=== PATIENT | female | born 1955 | race Caucasian/White ===

== ENCOUNTER 2017-02-28 15:26 | Emergency (ER) | payer OTHER ==
[~2017-02-28] VITALS: Ht 160 cm; Wt 57.7 kg
[2017-02-28 15:32] VITALS: TEMP 36.9; Ht 160 cm; Wt 57.7 kg
--- NOTE | 2017-02-28 16:12 | DIAGNOSTIC IMAGING REPORT ---
RIGHT TIBIA/FIBULA 2 VIEWS ROUTINE CLINICAL HISTORY: Right lower leg pain. Evaluate for fracture. COMPARISON: None FINDINGS: No fracture or osseous lesion is identified within the right tibia or fibula. There may be mild soft tissue swelling anterior to the proximal to mid shaft of the right tibia. There is no soft tissue gas. Alignment of the right knee and ankle is anatomic and the talar dome is intact. IMPRESSION: No osseous abnormality of the right tibia or fibula. Electronically signed by: Syed Vines M.D. 02/28/2017 4:11 PM Dictated Date/Time: 02/28/2017 4:10 PM
[2017-02-28] MEDS ORDERED: NAPR1TAB9 PO (16:18)
[2017-02-28] MEDS ORDERED: HYZ/10015 PO (16:18)
[2017-02-28] MEDS ORDERED: PROB1TAB16 PO (16:18)
[2017-02-28] MEDS ORDERED: CLR10 PO (16:18)
[2017-02-28 17:36] LABS: BASO % 0.3 %; BASO ABS # 0.02 K/uL (0-0.2); COMPLETE YES; EOS % 0.7 %; HEMATOCRIT 41.1 % (37-47); IG% 0.3 %; LYMPH % 13.6 %; MEAN CELL VOLUME 91.9 fL (80-100); MEAN CORPUSCULAR HEMOGLOBIN 30.9 pg (25-34); MEAN CORPUSCULAR HGB CONC 33.6 g/dl (32-36); MEAN PLATELET VOLUME 9.5 fL (7.4-10.4); MONO % 4.4 %; NEUT % 80.7 %; PLATELET COUNT 222 K/uL (130-400); RED BLOOD COUNT 4.47 M/uL (4.2-5.4); WHITE BLOOD COUNT 7.33 K/uL (4.8-10.8)
[2017-02-28 17:48] LABS: PROTHROMBIN TIME (PATIENT) 10.4 SECONDS (9.0-12.0)
[2017-02-28 17:52] LABS: BUN/CREATININE RATIO 24.6 (10-20); CALCIUM 9.3 mg/dl (8.5-10.1); CREATININE 0.61 mg/dl (0.60-1.20); POTASSIUM 4.2 mmol/L (3.5-5.1)
--- NOTE | 2017-02-28 17:52 | DIAGNOSTIC IMAGING REPORT ---
RIGHT LOWER EXTREMITY VENOUS DOPPLER CLINICAL HISTORY: Right calf pain and swelling. COMPARISON STUDY: No previous studies for comparison. TECHNIQUE: Sonography of the deep venous system of the right lower extremity was performed. Compression and augmentation were evaluated. FINDINGS: The right common femoral, superficial femoral and popliteal veins were compressible. Augmentation was normal. Flow was shown within the deep calf vessels. IMPRESSION: No evidence of deep venous thrombus within the right lower extremity. Electronically signed by: Syed Vines M.D. 02/28/2017 5:50 PM Dictated Date/Time: 02/28/2017 5:50 PM
[2017-02-28 18:21] VITALS: BP 168/99; PULSE 78; O2SAT 98
--- NOTE | 2017-02-28 18:30 | EMERGENCY ROOM VISIT NOTE ---
History Report prepared by Stephane: Zonia Beasley Under the Supervision of: Dr. Jay Gonsalves M.D. First contact with patient: 15:35 Chief Complaint: LEG PAIN,LEG INJURY Stated Complaint: L CALF PAIN, SWELLING AND TENDERNESS History of Present Illness The patient is a 62 year old female who presents to the Emergency Room with complaints of constant right calf throbbing beginning a few hours ago. The patient states that she is visiting [place] from [place] and drove 2.5 hours yesterday to get here. She reports that today she started having some left calf pain and swelling that she has never had before. She notes that she is having some slight "numbness" in the right foot, but is not sure if she is just imagining it. The patient states that she tripped while she was walking her dogs the other day and has an abrasion on the right knee. She notes that she tried to elevate her leg and put heat on it without any relief of her pain. The patient describes her pain as throbbing and notes that she does not think that it is muscular. She denies any chest pain, shortness of breath, fever, vomiting, abdominal pain, and diarrhea. She reports a history of hypertension. Source of History: patient Onset: a few hours ago Position: other (right calf) Quality: other (throbbing) Timing: constant Modifying Factors (Relieving): other (none) Associated Symptoms: + numbness, No fevers, No chest pain, No SOB, No vomiting, No abdominal pain, No diarrhea Note: Pt complains of left calf swelling. Review of Systems See HPI for pertinent positives & negatives. A total of 10 systems reviewed and were otherwise negative. Past Medical & Surgical Medical Problems: (1) HTN (hypertension) Family History No pertinent family history stated. Social History Smoking Status: Never Smoker Marital Status: single Occupation Status: unemployed Current/Historical Medications Scheduled Hctz/Losartan (Hyzaar 25MG/100MG), 1 TAB PO DAILY Probiotic Product (Probiotic), 1 TAB PO DAILY Scheduled PRN Loratadine (Claritin), 10 MG PO DAILY PRN for Allergy Symptoms Naproxen (Aleve), 220 MG PO UD PRN for Pain Allergies Coded Allergies: No Known Allergies (Unverified , 02/28/17) Physical Exam Vital Signs Date Time Temp Pulse Resp B/P (MAP) Pulse Ox O2 Delivery O2 Flow Rate FiO2 02/28/17 18:21 78 18 168/99 98 02/28/17 17:21 77 18 170/95 98 Room Air 02/28/17 15:32 36.9 100 16 160/97 97 Room Air Physical Exam Constitutional: Vital signs reviewed. Eyes: Pupils are equal round reactive to light. Conjunctiva are noninjected. ENT: Pharynx is clear without erythema or exudate. Mucous membranes are moist. Neck supple without meningeal signs. Respiratory: Clear to auscultation bilaterally. Breath sounds are equal bilaterally. Cardiovascular: Regular rate and rhythm. No rubs or gallops. GI: Soft, nondistended and nontender. Bowel sounds are present. Musculoskeletal: No bony tenderness to the right knee or tib fib, abrasion to the inferolateral aspect of the right knee, no obvious swelling, tenderness, or erythema to the calf. Integumentary: No cyanosis. Neurological: The patient is awake and alert. No focal deficits. Psychiatric: Normal affect. Medical Decision & Procedures ER Provider Diagnostic Interpretation: Radiology results as stated below per my review and the radiologist's interpretation: RIGHT TIBIA/FIBULA 2 VIEWS ROUTINE FINDINGS: No fracture or osseous lesion is identified within the right tibia or fibula. There may be mild soft tissue swelling anterior to the proximal to mid shaft of the right tibia. There is no soft tissue gas. Alignment of the right knee and ankle is anatomic and the talar dome is intact. IMPRESSION: No osseous abnormality of the right tibia or fibula. Electronically signed by: Syed Vines M.D. 02/28/2017 4:11 PM Dictated Date/Time: 02/28/2017 4:10 PM RIGHT LOWER EXTREMITY VENOUS DOPPLER FINDINGS: The right common femoral, superficial femoral and popliteal veins were compressible. Augmentation was normal. Flow was shown within the deep calf vessels. IMPRESSION: No evidence of deep venous thrombus within the right lower extremity. Electronically signed by: Syed Vines M.D. 02/28/2017 5:50 PM Dictated Date/Time: 02/28/2017 5:50 PM Laboratory Results 02/28/17 17:26 Red Blood Count 4.47, Mean Corpuscular Volume 91.9, Mean Corpuscular Hemoglobin 30.9, Mean Corpuscular Hemoglobin Concent 33.6, Mean Platelet Volume 9.5, Neutrophils (%) (Auto) 80.7, Lymphocytes (%) (Auto) 13.6, Monocytes (%) (Auto) 4.4, Eosinophils (%) (Auto) 0.7, Basophils (%) (Auto) 0.3, Neutrophils # (Auto) 5.92, Lymphocytes # (Auto) 1.00, Monocytes # (Auto) 0.32, Eosinophils # (Auto) 0.05, Basophils # (Auto) 0.02 02/28/17 17:26 Test 02/28/17 17:26 White Blood Count 7.33 K/uL (4.8-10.8) Red Blood Count 4.47 M/uL (4.2-5.4) Hemoglobin 13.8 g/dL (12.0-16.0) Hematocrit 41.1 % (37-47) Mean Corpuscular Volume 91.9 fL (80-100) Mean Corpuscular Hemoglobin 30.9 pg (25-34) Mean Corpuscular Hemoglobin Concent 33.6 g/dl (32-36) Platelet Count 222 K/uL (130-400) Mean Platelet Volume 9.5 fL (7.4-10.4) Neutrophils (%) (Auto) 80.7 % Lymphocytes (%) (Auto) 13.6 % Monocytes (%) (Auto) 4.4 % Eosinophils (%) (Auto) 0.7 % Basophils (%) (Auto) 0.3 % Neutrophils # (Auto) 5.92 K/uL (1.4-6.5) Lymphocytes # (Auto) 1.00 K/uL (1.2-3.4) Monocytes # (Auto) 0.32 K/uL (0.11-0.59) Eosinophils # (Auto) 0.05 K/uL (0-0.5) Basophils # (Auto) 0.02 K/uL (0-0.2) RDW Standard Deviation 44.5 fL (36.4-46.3) RDW Coefficient of Variation 13.3 % (11.5-14.5) Immature Granulocyte % (Auto) 0.3 % Immature Granulocyte # (Auto) 0.02 K/uL (0.00-0.02) Prothrombin Time 10.4 SECONDS (9.0-12.0) Prothromb Time International Ratio 1.0 (0.9-1.1) Activated Partial Thromboplast Time 24.9 SECONDS (21.0-31.0) Partial Thromboplastin Ratio 1.0 Anion Gap 8.0 mmol/L (3-11) Est Creatinine Clear Calc Drug Dose 79.1 ml/min Estimated GFR () 112.6 Estimated GFR (Non- 97.2 BUN/Creatinine Ratio 24.6 (10-20) Calcium Level 9.3 mg/dl (8.5-10.1) Laboratory results as reviewed by me. ED Course 1535: The patient was evaluated in room B5. A complete history and physical exam was performed. 1655: I spoke to the patient. She is not sure if she wants to wait for the ultrasound so she may leave and come back. 173: The patient is headed to ultrasound. 181: I updated the patient on her test results. 182: Upon reevaluation, the patient appeared to have improvement of her symptoms. I discussed tonight's findings with the patient. She verbalized agreement of the treatment plan. The patient was discharged home. Medical Decision This is a 62-year-old female who presents with right calf pain. Differential diagnosis includes strain, superficial thrombophlebitis, DVT, pathologic fracture. I did perform a limited focused review of portions of the patient's old chart on the electronic medical record. The patient has had no prior visits. Blood Pressure Screening: Patient was found to have an elevated blood pressure and was referred to their primary doctor for recheck and further treatment. Medication Reconciliation: I attest that I have personally reviewed the patient' s current medication list. I did evaluate the patient as noted above. The patient is presenting with pain to her right calf for the past 2 hours. She was concerned about a DVT. Her exam is unremarkable. She did state she had some vague numbness to her right foot, although she could not really specify what that meant. She has no numbness on examination of her foot. She has normal distal pulses. She has no signs of infection to the leg. She does have an abrasion to the right knee. She is not sure when she had her last tetanus shot. She declines one here. She states that she is followed closely by her doctor and is sure that he has kept her up-to-date. I did order and personally review the patient's tib-fib x -ray as described above. I did order and review the patient's blood work as noted in the electronic medical record. I did order a Doppler ultrasound of the right lower extremity. I did review the images myself as well as the radiology report as described above. There is no evidence of DVT. I did discuss the test results with the patient and her . She was advised follow up with her doctor. She was discharged in good condition. Impression Primary Impression: Leg pain, right Scribe Attestation The scribe's documentation has been prepared under my direct and personally reviewed by me in its entirety. I confirm that the note above accurately reflects all work, treatment, procedures, and medical decision making performed by me. Departure Information Dispostion Home / Self-Care Referrals No Doctor, Assigned (PCP) Forms HOME CARE DOCUMENTATION FORM, IMPORTANT VISIT INFORMATION Patient Instructions My [facility] Additional Instructions You have been examined and treated today on an emergency basis only. This is not a substitute for, or an effort to provide, complete comprehensive medical care. It is impossible to recognize and treat all injuries or illnesses in a single emergency department visit. It is therefore important that you follow up closely with your physician. Call as soon as possible for an appointment. Return for worsening symptoms or if you develop fever, vomiting, redness to your leg, chest pain, shortness of breath or any other concerning symptoms.
== END 2017-02-28 18:23 | disposition home or self-care (01) ==
LOC: C.EDB 15:30
DX: M79.604 Pain in right leg (principal); I10 Essential (primary) hypertension; Z79.899 Other long term (current) drug therapy